=== PATIENT | male | born 1945 | race Caucasian/White ===

== ENCOUNTER → 2017-03-11 | Outpatient (CLI) | payer MEDICARE | LOC: M LAB 09:18 | PROVIDERS: ATTEND Radiology Radiation Oncology | DX: C61 Malignant neoplasm of prostate (principal) ==

== ENCOUNTER → 2017-03-16 | Outpatient (CLI) | payer MEDICARE ==
--- NOTE | 2017-03-16 10:40 | RADONC ---
RADIATION ONCOLOGY FOLLOWUP NOTE: DATE: 03/16/2017 CHART NO: [id number] DIAGNOSIS: Prostate cancer. STAGE: II B, [id number] ECOG PERFORMANCE STATUS: 0 Mr. 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 The patient presents today reporting that he is doing quite well with no complaints at this time related to his radiation therapy disease. He has no urinary or bowel difficulties. No bone pain. REVIEW OF SYSTEMS: The patient's review of systems is noncontributory. He denies nausea, vomiting, fevers, chills, night sweats, diplopia, headaches, anxiety or depression, anorexia, weight loss, visual disturbances, chest pain, urinary or bowel difficulties, bone pain, or neurological problems. PHYSICAL EXAMINATION: The patient is a well-developed, well-nourished male in no acute distress. HEENT exam is normocephalic, atraumatic. Extraocular movements are intact. There is no palpable cervical, supraclavicular, infraclavicular, axillary, or inguinal lymphadenopathy present. Lungs are clear to auscultation and percussion. Heart has a regular rate and rhythm. Abdomen is benign with no hepatosplenomegaly, masses, or tenderness. Rectal examination reveals a normal anal sphincter tone. His prostate is smooth with no evidence of nodularity. Skeletal examination reveals no tenderness to pressure or percussion of the bony skeleton. Extremities reveal no clubbing, cyanosis, or edema. Neurologic exam is grossly intact, as is the remainder of the physical examination. ASSESSMENT: The patient is clinically TENISHA at this time and will be seen by us again in 6 months for further followup. He will also continue to be followed by his other physicians as well. cc: *Pravin Ingram MD *Manny Mann MD
== END ==
LOC: M ONCR 10:18
PROVIDERS: ATTEND Radiology Radiation Oncology
DX: C61 Malignant neoplasm of prostate (principal)

== ENCOUNTER → 2017-09-10 | Outpatient (CLI) | payer MEDICARE | LOC: M LAB 10:40 | PROVIDERS: ATTEND Radiology Radiation Oncology | DX: C61 Malignant neoplasm of prostate (principal) ==

== ENCOUNTER → 2017-09-14 | Outpatient (CLI) | payer MEDICARE ==
--- NOTE | 2017-09-16 07:10 | RADONC ---
RADIATION ONCOLOGY FOLLOWUP NOTE DATE: 09/14/2017 CHART NUMBER: [id number] DIAGNOSIS: Prostate cancer. STAGE: IIB, [id number]. ECOG PERFORMANCE STATUS: 0 FOLLOWUP NOTE: Mr. Azul is a very pleasant 72-year-old white male with the diagnosis of a stage IIB, [id number], moderate to poorly differentiated Ralf score 7 (3-4) adenocarcinoma of the prostate who is presenting to us today for routine followup visit 1 year and 2 months post completion of external beam radiation therapy. The patient presents today reporting that he is doing quite well with no complaints at this time related to his radiation therapy or disease. He is having no urinary or bowel difficulties, and no bone pain. REVIEW OF SYSTEMS: The patient's review of systems is noncontributory. He denies nausea, vomiting, fevers, chills, night sweats, diplopia, headaches, anxiety or depression, anorexia, weight loss, visual disturbances, chest pain, urinary or bowel difficulties, bone pain or neurological problems. PHYSICAL EXAMINATION: The patient is a well-developed, well-nourished male in no acute distress. HEENT exam is normocephalic, atraumatic. Extraocular movements are intact. There is no palpable cervical, supraclavicular, infraclavicular, axillary, or inguinal lymphadenopathy present. Lungs are clear to auscultation and percussion. Heart has a regular rate and rhythm. Abdomen is benign with no hepatosplenomegaly, masses, or tenderness. Rectal examination reveals a normal anal sphincter tone. His prostate is smooth with no evidence of nodularity. Skeletal examination reveals no tenderness to pressure or percussion of the bony skeleton. Extremities reveal no clubbing, cyanosis, or edema. Neurologic exam is grossly intact as is the remainder of the physical examination. ASSESSMENT: The patient is clinically TENISHA at this time and will be seen by us again in 6 months for further followup. He will also continue to be followed by his other physicians as well. cc: MD Manny Brown MD
== END ==
LOC: M ONCR 09:43
PROVIDERS: ATTEND Radiology Radiation Oncology
DX: C61 Malignant neoplasm of prostate (principal)

== ENCOUNTER → 2018-03-15 | Outpatient (CLI) | payer MEDICARE | LOC: M ONCR 09:54 | DX: C61 Malignant neoplasm of prostate (principal) | CPT/HCPCS: G0463 ==

== ENCOUNTER → 2019-03-14 | Outpatient (CLI) | payer MEDICARE ==
--- NOTE | 2019-03-18 14:29 | RADONC ---
RADIATION ONCOLOGY FOLLOWUP NOTE DATE: 03/14/2019 CHART #: [id number] DIAGNOSIS: Prostate cancer. STAGE: II B, [id number]. ECOG PERFORMANCE STATUS: 0. FOLLOWUP NOTE: Mr. Azul is a very pleasant 73-year-old white male with the diagnosis of a stage II B, [id number], moderate to poorly differentiated Callicoon score 7 (3-4) adenocarcinoma of the prostate who is presenting to us today for routine followup visit 2 years and 8 months post completion of external beam radiation therapy. The patient presents today reporting that he is doing quite well with no complaints at this time related to his radiation therapy or disease. He is having no urinary or bowel difficulties. No bone pain. REVIEW OF SYSTEMS: The patient's review of systems is noncontributory. Denies nausea, vomiting, fevers, chills, night sweats, diplopia, headaches, anxiety or depression, anorexia, weight loss, visual disturbances, chest pain, urinary or bowel difficulties, bone pain, or neurological problems. PHYSICAL EXAMINATION: The patient is a well-developed, well-nourished male in no acute distress. HEENT exam is normocephalic, atraumatic. Extraocular movements are intact. There is no palpable cervical, supraclavicular, infraclavicular, axillary, or inguinal lymphadenopathy present. Lungs are clear to auscultation and percussion. Heart has a regular rate and rhythm. Abdomen is benign with no hepatosplenomegaly, masses, or tenderness. Rectal examination reveals a normal anal sphincter tone. His prostate is smooth with no evidence of nodularity. Skeletal examination reveals no tenderness to pressure or percussion of the bony skeleton. Extremities reveal no clubbing, cyanosis, or edema. Neurologic exam is grossly intact, as is the remainder of the physical examination. ASSESSMENT: The patient is clinically doing quite well at this point. His PSA however is up slightly. It was drawn on 03/07/2019 and it was 0.42. Previous PSA 09/10/2017 was 0.33. In light of this, I have set this patient up for a routine followup visit in my office in six months' time and we will continue to follow him closely. cc: MD Manny Brown MD
== END ==
LOC: M ONCR 09:41
PROVIDERS: ATTEND Radiology Radiation Oncology
DX: C61 Malignant neoplasm of prostate (principal); Z92.3 Personal history of irradiation

== ENCOUNTER → 2019-10-10 | Outpatient (CLI) | payer MEDICARE ==
--- NOTE | 2019-10-12 14:55 | RADONC ---
RADIATION ONCOLOGY FOLLOWUP NOTE DATE: 10/10/2019 CHART NUMBER: [id number] DIAGNOSIS: Prostate cancer. STAGE: II B, [id number]. ECOG PERFORMANCE STATUS: 0 FOLLOWUP NOTE: Mr. Azul is a very pleasant 74-year-old white male with the diagnosis of a stage II B, [id number] moderate to poorly differentiated Lavallette score 7 (3-4) adenocarcinoma of prostate who is presenting to us today for routine followup visit 3 years and 3 months post completion of external beam radiation therapy. The patient presents today reporting that he is doing quite well with no complaints at this time related to his radiation therapy or disease. He has no urinary or bowel difficulties and no bone pain. REVIEW OF SYSTEMS: The patient's review of systems is noncontributory. Denies nausea, vomiting, fevers, chills, night sweats, diplopia, headaches, anxiety or depression, anorexia, weight loss, visual disturbances, chest pain, urinary or bowel difficulties, bone pain, or neurological problems. PHYSICAL EXAMINATION: The patient is a well-developed, well-nourished male in no acute distress. HEENT exam is normocephalic, atraumatic. Extraocular movements are intact. There is no palpable cervical, supraclavicular, infraclavicular, axillary, or inguinal lymphadenopathy present. Lungs are clear to auscultation and percussion. Heart has a regular rate and rhythm. Abdomen is benign with no hepatosplenomegaly, masses, or tenderness. Rectal examination reveals a normal anal sphincter tone. His prostate is smooth with no evidence of nodularity. Skeletal examination reveals no tenderness to pressure or percussion of the bony skeleton. Extremities reveal no clubbing, cyanosis, or edema. Neurologic exam is grossly intact, as is the remainder of the physical examination. ASSESSMENT: The patient is clinically TENISHA at this time and will be seen by me again in 6 months for further followup. He will also continue to be followed by his other physicians as well. cc: MD Manny Brown MD
== END ==
LOC: M ONCR 09:29
PROVIDERS: ATTEND Radiology Radiation Oncology
DX: C61 Malignant neoplasm of prostate (principal)

== ENCOUNTER → 2020-04-09 | Outpatient (CLI) | payer MEDICARE ==
--- NOTE | 2020-04-11 16:57 | RADONC ---
RADIATION ONCOLOGY FOLLOWUP NOTE DATE: 04/09/2020 This is a telemedicine visit. The patient was informed of the risks including security breech, technological failure, inability to perform a comprehensive physical exam which could delay or prevent an accurate diagnosis, and potential complications from treatment decisions rendered over a telemedicine platform. The patient understands and consented to the use of telehealth services phone only. CHART NUMBER: [id number] DIAGNOSIS: Prostate cancer. STAGE: II B, T2c, N0, M0. ECOG PERFORMANCE STATUS: 0 FOLLOWUP NOTE: Mr. Azul is a very pleasant 74-year-old white male with the diagnosis of a stage II B, T2b, N0, M0 moderate to poorly differentiated Ralf score 7 (3-4) 03-04 adenocarcinoma of prostate who is presenting to us today for routine followup visit almost 4 years post completion of radiation therapy. The patient presents today reporting that he is doing quite well with no complaints at this time related to his radiation therapy or disease. He is having no urinary or bowel difficulties and no bone pain. REVIEW OF SYSTEMS: The patient's review of systems is noncontributory. Denies nausea, vomiting, fevers, chills, night sweats, diplopia, headaches, anxiety or depression, anorexia, weight loss, visual disturbances, chest pain, urinary or bowel difficulties, bone pain, or neurological problems. PHYSICAL EXAMINATION: Physical examination was deferred at this time per for COVID-19 precaution. This was a telephone interview. ASSESSMENT: The patient is clinically need at this time and will be seen by us again in 1 year for further followup. He will also continue to be followed by his other physicians as well. cc: MD Manny Brown MD
== END ==
LOC: M ONCR 14:34
PROVIDERS: ATTEND Radiology Radiation Oncology
DX: C61 Malignant neoplasm of prostate (principal)

== ENCOUNTER → 2021-04-15 | Outpatient (CLI) | payer MEDICARE ==
--- NOTE | 2021-04-15 09:54 | RADONC ---
Radiation Oncology Hx/FUP Radiation Oncology Hx/FUP Date of Service: Apr 15, 2021 Pt Identifier Chavo Azul is a 75 year old male seen for a followup visit today at the department of radiation oncology for a history of intermediate risk prostate cancer cT2b [place] 3+4=7 PSA 4.1. He completed EBRT 79.2 Gy in 44 fractions on 07/21/16. Diagnosis/Treatment History Oncologic History Pathology (TRUS biopsy diagnosed 2015, [facility] PSA Trend: 05/04/16 4.1 08/17/16 0.99 03/11/17 0.35 09/10/17 0.33 03/16/21 0.44 ([facility]) Interval History Chavo reports he is feeling well with good appetite and energy. 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 He has no urinary complaints. Reports good stream and emptying, has stable 2x nocturia which predates his diagnosis and treatment. No problems with his bowels. No BRBPR, no diarrhea or constipation. Current Therapy Surveillance Stage Prostate cancer intermediate risk cT2b [place] 3+4=7 PSA 4.1 stage IIB Social History: Non-smoker Non-drinker Allergies / Meds Allergies: Coded Allergies: No Known Allergies (Verified , 11/02/07) Review of Systems Review of Systems Constitutional: Denies: Chills, Fever, Fatigue Eyes: Denies: Pain HEENT: Denies: Head Aches Pulmonary: Denies: Dyspnea, Cough Cardiovascular: Denies: Chest Pain Gastrointestinal: Denies: Abdominal Pain, Diarrhea, Constipation, Hematochezia Genitourinary: Denies: Dysuria, Frequency, Incontinence, Retention Musculoskeletal: Denies: Neck pain, Back pain Neurological: Denies: Weakness, Numbness Psych: Reports: Mood Normal; Denies: Thoughts of Self Harm Physical Examination Vital Signs Wt 240 lbs T 97.8 P 68 RR 18 BP 133/79 O2 95% Pain 0 Fatigue 0 General Exam: Positive: Alert, Cooperative, No Acute Distress Eye Exam: Positive: PERRLA, EOMI ENT EXAM: Positive: Atraumatic Neck Exam: Positive: Supple Chest Exam: Positive: Clear to auscultation Heart Exam: Positive: Rate Normal Abdomen Exam: Positive: Normal bowel sounds, Soft Extremity Exam: Negative: Edema Skin Exam: Positive: Nl turgor and temperature Neuro Exam: Positive: Normal Gait, Normal Speech, Cranial Nerves 3-12 NL Psych Exam: Positive: Mental status NL Other Physical Findings Rectal deferred d/t low PSA Diagnostic and Laboratory Diagnostic Review Radiologic images, relevant labs and pathology reports were personally reviewed and discussed with Mr. Azul. Assessment and Plan Impression Assessment Mr. Azul is a 75 year old male with a history of intermediate risk prostate cancer cT2b [place] 3+4=7 PSA 4.1. He completed EBRT 79.2 Gy in 44 fractions on 07/21/16. Doing well in biochemical remission now 5 years removed from treatment. No late effects at this time. Will continue to follow next in 1 year with PSA. Performance Status ECOG 0 Plan Follow up in 1 year with PSA Mr. Azul was encouraged to call with questions or concerns in the interim period. Billing Statement Total time of [21] minutes was spent preparing for the visit [1], obtaining HPI [4], examining the patient [2], reviewing diagnostic tests [2], discussing management options [5], coordinating care [1], and writing this note [6]. CATALINA CRISTOBAL MD Apr 15, 2021 09:54
== END ==
LOC: M ONCR 08:55
PROVIDERS: ATTEND General Practice
DX: Z08 Encounter for follow-up examination after completed treatment for malignant neoplasm (principal); Z85.46 Personal history of malignant neoplasm of prostate

== ENCOUNTER → 2021-05-26 | Outpatient (REF) | payer MEDICARE | LOC: M LAB REF 17:04 | PROVIDERS: ATTEND Internal Medicine Nephrology | DX: N18.31 Chronic kidney disease, stage 3a (principal) ==

== ENCOUNTER → 2021-11-24 | Outpatient (REF) | payer MEDICARE | LOC: M LAB REF 17:05 | PROVIDERS: ATTEND Nurse Practitioner Family | DX: N18.31 Chronic kidney disease, stage 3a (principal) ==

== ENCOUNTER → 2022-04-14 | Outpatient (CLI) | payer MEDICARE | LOC: M ONCR 14:22 | PROVIDERS: ATTEND General Practice | DX: Z08 Encounter for follow-up examination after completed treatment for malignant neoplasm (principal); Z85.46 Personal history of malignant neoplasm of prostate; Z92.3 Personal history of irradiation | CPT/HCPCS: 84403; G0103; G0463 ==

== ENCOUNTER → 2023-04-20 | Outpatient (CLI) | payer MEDICARE | LOC: M ONCR 13:53 | PROVIDERS: ATTEND General Practice | DX: C61 Malignant neoplasm of prostate (principal); Z71.2 Person consulting for explanation of examination or test findings; Z92.3 Personal history of irradiation; Z99.89 Dependence on other enabling machines and devices | CPT/HCPCS: 36415; 84153; G0463 ==

== ENCOUNTER → 2024-04-20 | Outpatient (CLI) | payer MEDICARE | LOC: M ONCR 13:46 | PROVIDERS: ATTEND General Practice | DX: Z08 Encounter for follow-up examination after completed treatment for malignant neoplasm (principal); L98.9 Disorder of the skin and subcutaneous tissue, unspecified; Z85.46 Personal history of malignant neoplasm of prostate; Z92.3 Personal history of irradiation; Z98.42 Cataract extraction status, left eye; Z96.1 Presence of intraocular lens ==

== ENCOUNTER → 2025-04-24 | Outpatient (CLI) | payer MEDICARE | LOC: M ONCR 12:52 | PROVIDERS: ATTEND General Practice | DX: C61 Malignant neoplasm of prostate (principal); Z92.3 Personal history of irradiation ==